=== PATIENT | male | born 1940 | race Caucasian/White ===

== ENCOUNTER 2024-02-21 12:43 | Observation (INO) | payer MEDICARE, OTHER ==
[2024-02-21 13:17] LABS: #Basophils 0.05 10x3/uL (0.0-0.2); %Basophils 0.9 % (0.0-1.0); %Eosinophils 2.3 % (0.0-10.0); %Monocytes 10.2 % (0.0-10.0); %Neutrophils 70.2 % (42.0-75.0); Hematocrit 37.6 % (42.0-52.0); Mean Corpuscular HGB CONC 31.9 g/dL (32.0-36.0); Mean Corpuscular Hemoglobin 27.4 pg (27.0-31.0); Mean Corpuscular Volume 85.8 fL (78.0-98.0); Mean Platelet Volume 9.4 fL (7.4-10.4); Platelet Count 295 10x3/uL (130-400); RBC Distribution Width 14.4 % (11.5-14.5); Red Blood Cell (RBC) Count 4.38 mill/uL (4.70-6.10)
[2024-02-21 13:47] LABS: Troponin I Less than 0.010 ng/mL (< 0.028)
[2024-02-21 14:34] LABS: ALT (SGPT) 10 U/L (8-55); AST (SGOT) 12 U/L (5-34); Albumin 3.6 g/dL (3.4-4.8); Alkaline Phosphatase 38 U/L (40-110); Anion Gap 12 mmol/L (10-20); BUN (Urea Nitrogen) 20 mg/dL (8.4-25.7); Bilirubin, Total 0.3 mg/dL (0.2-1.2); Calc. Creatinine Clearance 0 mL/min (70-130); Calcium 9.1 mg/dL (7.8-10.44); Carbon Dioxide 24 mmol/L (23-31); Chloride 105 mmol/L (98-107); Estimated GFR 64; Globulin 2.9 g/dL (2.4-3.5); Glucose 138 mg/dL (83-110); Lipase 22 U/L (8-78); Potassium 4.6 mmol/L (3.5-5.1); Protein, Total 6.5 g/dL (5.8-8.1); Sodium 136 mmol/L (136-145)
[2024-02-21] MEDS ORDERED: Aspirin Chewable 81 MG TAB ONE (15:55)
[2024-02-21 16:38] LABS: Troponin I 0.012 ng/mL (< 0.028)
[2024-02-21] MEDS ORDERED: Acetaminophen 325 MG TAB PO PRN (17:00)
[2024-02-21] MEDS ORDERED: Ondansetron PF 4 MG/2 ML Vial IVP PRN (17:03)
[2024-02-21] MEDS ORDERED: Glucagon 1 MG/ML KIT IM PRN (17:04)
[2024-02-21] MEDS ORDERED: Dextrose 50% Abboject 50 ML SYRINGE SLOW IVP PRN (17:04)
[2024-02-21] MEDS ORDERED: Polyethylene Glycol 3350 17 GM Packet PO PRN (17:04)
[2024-02-21] MEDS ORDERED: Docusate 100 MG CAP PO PRN (17:04)
[2024-02-21] MEDS ORDERED: Dextrose 5% in Water 1,000 ML IV PRN (17:04)
[2024-02-21] MEDS ORDERED: hydrALAZINE 20 MG/ML VIAL SLOW IVP PRN (17:05)
[2024-02-21] MEDS ORDERED: Insulin Lispro 100 UNIT/ML 10 ML VIAL SC PRN (17:06)
[2024-02-21 17:30] VITALS: BMI 30.7
[2024-02-21] MEDS: Apixaban 5 MG TAB PO SCH (22:21)
[2024-02-22 04:23] LABS: #Basophils 0.05 10x3/uL (0.0-0.2); %Basophils 1.1 % (0.0-1.0); %Eosinophils 5.7 % (0.0-10.0); %Monocytes 11.7 % (0.0-10.0); %Neutrophils 52.3 % (42.0-75.0); Hematocrit 34.7 % (42.0-52.0); Hemoglobin 10.9 g/dL (14.0-18.0); Mean Corpuscular HGB CONC 31.4 g/dL (32.0-36.0); Mean Corpuscular Hemoglobin 27.1 pg (27.0-31.0); Mean Corpuscular Volume 86.3 fL (78.0-98.0); Mean Platelet Volume 9.4 fL (7.4-10.4); Platelet Count 260 10x3/uL (130-400); RBC Distribution Width 14.2 % (11.5-14.5); Red Blood Cell (RBC) Count 4.02 mill/uL (4.70-6.10)
[2024-02-22 04:52] LABS: Anion Gap 12 mmol/L (10-20); BUN (Urea Nitrogen) 20 mg/dL (8.4-25.7); Calc. Creatinine Clearance 71 mL/min (70-130); Calcium 8.9 mg/dL (7.8-10.44); Carbon Dioxide 24 mmol/L (23-31); Chloride 106 mmol/L (98-107); Estimated GFR 77; Glucose 113 mg/dL (83-110); Potassium 4.3 mmol/L (3.5-5.1); Sodium 138 mmol/L (136-145)
[2024-02-22] MEDS ORDERED: Regadenoson 0.4 MG/5 ML SYRINGE ONE (09:43)
[2024-02-22] MEDS: Pantoprazole DR 40 MG TAB PO SCH (11:31)
[2024-02-22] MEDS: Losartan 25 MG TAB PO SCH (11:31)
[2024-02-22] MEDS: Aspirin Chewable 81 MG TAB PO SCH (11:31)
[2024-02-22 12:09] VITALS: TEMP 97.6
[2024-02-22 12:55] VITALS: BP 140/63
== END 2024-02-22 13:31 | disposition home or self-care (01) ==
LOC: ERS 12:43 → 2NO 16:00
PROVIDERS: ADMIT Internal Medicine; ATTEND Hospitalist
DX: R07.89 Other chest pain (principal); I10 Essential (primary) hypertension; E11.9 Type 2 diabetes mellitus without complications; D64.9 Anemia, unspecified; Z95.818 Presence of other cardiac implants and grafts; Z79.01 Long term (current) use of anticoagulants; Z79.84 Long term (current) use of oral hypoglycemic drugs; Z79.899 Other long term (current) drug therapy
CPT/HCPCS: 71045; 78452; 80048; 80053; 82962 ×2; 83690; 84484 ×2; 85025 ×2; 85379; 93005; 93017; 99285; A9500; G0378 ×2; J2785 ×2; 36415; 36416